=== PATIENT | male | born 1975 | race Caucasian/White ===

== ENCOUNTER 2016-10-06 21:56 | Observation (INO) | payer OTHER ==
[~2016-10-06] VITALS: Ht 185.4 cm; Wt 94.0 kg
[2016-10-06 22:37] LABS: HEMATOCRIT 23.9 % (38.0-50.0); MCH 29.6 PG (29.0-34.0); MCHC 33.1 G/DL (30.0-36.0); MCV 89.5 FL (86-99); PLATELET COUNT 262 K/uL (156-360); RBC DIS.WIDTH-SD 41.5 % (39-53); RED BLOOD COUNT 2.67 M/uL (4.00-5.50); WHITE BLOOD COUNT 9.4 K/uL (4.1-10.2)
[2016-10-06 22:45] LABS: CHLORIDE 109 mEq/L (99-109); POTASSIUM 3.7 mEq/L (3.7-5.4); SODIUM 140 mEq/L (136-147)
[2016-10-06 22:47] LABS: GLUCOSE 163 mg/dL (70-99)
[2016-10-06 22:48] LABS: ANION GAP 7 MEQ/L (2-14)
[2016-10-06 22:51] LABS: GFR ESTIMATE (CALCULATED) > 59 mL/min/; UREA NITROGEN (BUN) 23 mg/dL (9-23)
[2016-10-06 23:27] LABS: D-DIMER ELISA 0.19 mg/L FEU (< 0.57)
[2016-10-06 23:54] LABS: TOTAL BILIRUBIN 0.4 mg/dL (0.0-1.0)
[2016-10-06 23:55] LABS: ALKALINE PHOSPHATASE 59 IU/L (3-129)
[2016-10-06 23:57] LABS: DIRECT BILIRUBIN 0.1 mg/dL (0.0-0.3)
[2016-10-07] VITALS (11 sets, daily range): BP systolic 109–126; BP diastolic 57–68
[2016-10-07 00:02] LABS: TROP-I INTERPRETATION NEGATIVE; TROPONIN-I < 0.01 ng/mL (0.0-0.30)
[2016-10-07 00:11] LABS: LIPASE 26 U/L (1.0-51.0)
[2016-10-07 00:53] LABS: HEMATOCRIT 19.9 % (38.0-50.0); MCHC 33.7 G/DL (30.0-36.0); MCV 89.2 FL (86-99); MEAN PLAT.VOLUME 10.5 uM^3 (9.0-12.4); PLATELET COUNT 221 K/uL (156-360); RBC DIS.WIDTH-SD 42.1 % (39-53); RED BLOOD COUNT 2.23 M/uL (4.00-5.50); WHITE BLOOD COUNT 8.9 K/uL (4.1-10.2)
[2016-10-07] MEDS ORDERED: METOPROLOL SUCC50 MG PO (01:17)
[2016-10-07] MEDS ORDERED: FISH OIL 1,0001 EAC8 PO (01:18)
[2016-10-07] MEDS ORDERED: DAILY VITAMIN1 EAC4 PO (01:18)
[2016-10-07] MEDS ORDERED: LO-DOSE ASPIRIN81 M1 PO (01:18)
[2016-10-07] MEDS ORDERED: VITAMIN D31000 UNI2 PO (01:18)
[2016-10-07 02:32] LABS: IRON 52 MCG/DL (35-150); SAMPLE HEMOLYSIS CHECK 0; SAMPLE ICTERIC CHECK 0; SAMPLE LIPEMIA CHECK 1
[2016-10-07 07:35] LABS: HEMATOCRIT 26.5 % (38.0-50.0); MCV 88.3 FL (86-99)
[2016-10-07 13:46] LABS: HEMATOCRIT 27.2 % (38.0-50.0); MCV 87.7 FL (86-99)
[2016-10-08 04:50] VITALS: BP 107/62
[2016-10-08 06:22] LABS: HEMATOCRIT 27.2 % (38.0-50.0); MCH 29.4 PG (29.0-34.0); MCHC 32.7 G/DL (30.0-36.0); MCV 89.8 FL (86-99); MEAN PLAT.VOLUME 10.5 uM^3 (9.0-12.4); PLATELET COUNT 216 K/uL (156-360); RBC DIS.WIDTH-CV 14.5 % (11.8-14.6); RBC DIS.WIDTH-SD 45.7 % (39-53); WHITE BLOOD COUNT 7.5 K/uL (4.1-10.2)
[2016-10-08 06:25] LABS: RED BLOOD COUNT 3.03 M/uL (4.00-5.50)
[2016-10-08 06:39] LABS: ANION GAP 5 MEQ/L (2-14); CHLORIDE 109 MEQ/L (99-109); GFR ESTIMATE (CALCULATED) > 59 mL/min/; POTASSIUM 4.2 MEQ/L (3.7-5.4); SAMPLE HEMOLYSIS CHECK 0; SAMPLE ICTERIC CHECK 0; SAMPLE LIPEMIA CHECK 0; SODIUM 141 MEQ/L (136-147); UREA NITROGEN (BUN) 11 mg/dL (9-23)
[2016-10-08 06:43] LABS: GLUCOSE 99 mg/dL (70-99)
[2016-10-08 08:00] VITALS: BP 113/74
[2016-10-08] MEDS ORDERED: PROTONIX40 MG PO (10:54)
== END 2016-10-08 12:05 | disposition home or self-care (01) ==
LOC: EME 21:56 → 4EAST 10-07 01:56 → EDOF 10-07 01:56 → 4EAST 10-07 02:37
PROVIDERS: Emergency Medicine; Hospitalist; Physician Assistant; Specialist
PROC: 0DB68ZX Excision of Stomach, Via Natural or Artificial Opening Endoscopic, Diagnostic (ICD-10-PCS; principal; 2016-10-07)
PROC: 30233N1 Transfusion of Nonautologous Red Blood Cells into Peripheral Vein, Percutaneous Approach (ICD-10-PCS; 2016-10-07)
DX: D62 Acute posthemorrhagic anemia (principal); K22.11 Ulcer of esophagus with bleeding; K29.80 Duodenitis without bleeding; R55 Syncope and collapse; I95.9 Hypotension, unspecified; E86.1 Hypovolemia; I10 Essential (primary) hypertension; R01.1 Cardiac murmur, unspecified; K44.9 Diaphragmatic hernia without obstruction or gangrene; Z87.891 Personal history of nicotine dependence
CPT/HCPCS: 36415; 71020; 74177; 80048; 80053; 80061; 80076; 83036; 83540; 83605; 83690; 84443; 84466; 84484; 84550; 85014; 85018; 85027; 85379; 85610; 85730; 86900; 86901; 86920; 88305; 88342 TC; 93005; 93306; 99281; 99285; C9113; G0378; J3010; J7030; P9016

== ENCOUNTER 2017-02-24 20:20 | Inpatient (IN) | payer OTHER ==
[~2017-02-24] VITALS: Ht 185.4 cm; Wt 98.5 kg
[~2017-02-24 20:20] MED LIST: DAILY VITAMIN1 EAC4 PO; FISH OIL 1,0001 EAC8 PO; LO-DOSE ASPIRIN81 M1 PO; METOPROLOL SUCC50 MG PO; PROTONIX40 MG PO; VITAMIN D31000 UNI2 PO
[2017-02-24 20:52] LABS: HEMATOCRIT 39.9 % (38.0-50.0); MCH 23.8 PG (29.0-34.0); MCHC 31.6 G/DL (30.0-36.0); MCV 75.4 FL (86-99); MEAN PLAT.VOLUME 9.4 uM^3 (9.0-12.4); PLATELET COUNT 351 K/uL (156-360); RBC DIS.WIDTH-SD 43.8 % (39-53); RED BLOOD COUNT 5.29 M/uL (4.00-5.50); WHITE BLOOD COUNT 10.7 K/uL (4.1-10.2)
[2017-02-24 21:00] LABS: CHLORIDE 104 mEq/L (99-109); POTASSIUM 3.8 mEq/L (3.7-5.4); SODIUM 140 mEq/L (136-147)
[2017-02-24 21:02] LABS: GLUCOSE 122 mg/dL (70-99)
[2017-02-24 21:03] LABS: ANION GAP 12 MEQ/L (2-14)
[2017-02-24 21:06] LABS: GFR ESTIMATE (CALCULATED) > 59 mL/min/
[2017-02-24 21:07] LABS: UREA NITROGEN (BUN) 16 mg/dL (9-23)
[2017-02-24 21:18] LABS: D-DIMER ELISA < 150.00 ng/mLDDU (<230); TROP-I INTERPRETATION NEGATIVE; TROPONIN-I < 0.01 ng/mL (0.0-0.30)
[2017-02-25 00:29] LABS: PROTHROMBIN TIME 10.6 SEC (10.2-12.9)
[2017-02-25 00:32] LABS: PTT 27.2 SEC (25-37)
[2017-02-25 03:19] LABS: TROP-I INTERPRETATION NEGATIVE; TROPONIN-I 0.02 ng/mL (0.0-0.30)
[2017-02-25 05:56] LABS: HEMATOCRIT 41.4 % (38.0-50.0); MCH 23.9 PG (29.0-34.0); MCHC 30.4 G/DL (30.0-36.0); MCV 78.6 FL (86-99); MEAN PLAT.VOLUME 10.1 uM^3 (9.0-12.4); PLATELET COUNT 324 K/uL (156-360); RBC DIS.WIDTH-CV 16.3 % (11.8-14.6); RBC DIS.WIDTH-SD 46.5 % (39-53); RED BLOOD COUNT 5.27 M/uL (4.00-5.50); WHITE BLOOD COUNT 9.6 K/uL (4.1-10.2)
[2017-02-25 06:04] LABS: CHLORIDE 112 mEq/L (99-109); POTASSIUM 4.3 mEq/L (3.7-5.4); SODIUM 141 mEq/L (136-147)
[2017-02-25 06:07] LABS: GLUCOSE 107 mg/dL (70-99)
[2017-02-25 06:08] LABS: ANION GAP 5 MEQ/L (2-14)
[2017-02-25 06:09] LABS: TOTAL BILIRUBIN 0.9 mg/dL (0.0-1.0)
[2017-02-25 06:10] LABS: ALKALINE PHOSPHATASE 74 IU/L (3-129); GFR ESTIMATE (CALCULATED) > 59 mL/min/
[2017-02-25 06:11] LABS: UREA NITROGEN (BUN) 13 mg/dL (9-23)
[2017-02-25 09:18] LABS: TROP-I INTERPRETATION NEGATIVE; TROPONIN-I 0.02 ng/mL (0.0-0.30)
[2017-02-25 09:56] VITALS: BP 102/67
[2017-02-25 11:18] VITALS: BP 118/85
[2017-02-25 14:55] VITALS: BP 116/80
[2017-02-25 19:44] VITALS: BP 124/77
[2017-02-26 01:30] VITALS: BP 114/69
[2017-02-26 04:50] VITALS: BP 114/68
[2017-02-26 08:30] VITALS: BP 123/89
[2017-02-26] MEDS ORDERED: METOPROLOL SUCC50 MG PO (10:41)
[2017-02-26] MEDS ORDERED: PROTONIX40 MG PO (10:41)
[2017-02-26] MEDS ORDERED: ELIQUIS5 MG PO (10:43)
[2017-02-26 11:36] VITALS: BP 133/83
== END 2017-02-26 13:00 | disposition home or self-care (01) | DRG 310 ==
LOC: EME 20:20 → EDOF 23:16 → ENRESERV 23:20 → EDOF 02-25 07:26 → ENRESERV 02-25 12:07 → 4EAST 02-25 14:43 → ENPENDDIS 02-26 → 4EAST 02-26 13:00
PROVIDERS: Emergency Medicine; Internal Medicine
DX: I48.0 Paroxysmal atrial fibrillation (principal); I08.1 Rheumatic disorders of both mitral and tricuspid valves; I27.2 Other secondary pulmonary hypertension; I10 Essential (primary) hypertension; R55 Syncope and collapse; E78.00 Pure hypercholesterolemia, unspecified; E78.5 Hyperlipidemia, unspecified; K21.9 Gastro-esophageal reflux disease without esophagitis; K44.9 Diaphragmatic hernia without obstruction or gangrene; M25.512 Pain in left shoulder; M79.601 Pain in right arm; R07.9 Chest pain, unspecified; R71.8 Other abnormality of red blood cells; Z83.3 Family history of diabetes mellitus; Z87.11 Personal history of peptic ulcer disease; Z87.891 Personal history of nicotine dependence
CPT/HCPCS: 70450; 71020; 80048; 80053; 84443; 84484; 85027; 85379; 85610; 85730; 93005; 99281; 99285; J7030; J7050